=== PATIENT | male | born 2000 | race African-American/Black ===

== ENCOUNTER 2020-03-25 16:51 | Emergency (ER) | payer MEDICAID ==
[2020-03-25 17:00] VITALS: BP 128/63
[2020-03-25] MEDS ORDERED: PREDNISONE 20 MG TABLET PO ONE (18:25)
--- NOTE | 2020-03-25 18:30 | ER Document Report ---
ED Respiratory Problem - General Chief Complaint: Asthma Exacerbation Stated Complaint: ASTHMA Time Seen by Provider: 03/25/20 18:20 Mode of Arrival: Ambulatory Information source: Patient Notes: 19-year-old male presented to ED for shortness of breath. He states he was at the job today and got very short of breath and his boss that he looked, lightheaded and spaced out. He states he always gets that way when he gets an asthma attack. He states he was out of his albuterol inhaler. He is from [place] and did not have one with him. His primary care doctors in [place]. He did promise me he will follow-up with the doctor on Wednesday. He states that he went to the urgent care here they gave him a breathing treatment he is no longer short of breath he is no longer dizzy. He just needs an albuterol inhaler till he goes back home. I have ordered him prednisone and sent him home with a prescription for albuterol and prednisone. I have asked him to please quit smoking the marijuana as this is affecting his asthma. He states no one is ever told that marijuana would affect his asthma. Constitutional: Negative for fever. HENT: Negative for sore throat. Eyes: Negative for visual changes. Cardiovascular: Negative for chest pain. Respiratory: Patient states he was short of breath and wheezing on the job and then became lightheaded and he states his boss told him he was very dazed and spacey. Patient states he does get that way when he has a asthma exacerbation. He gets exacerbations every time the weather changes. He states the weather changes very suddenly and he has been short of breath since then and ran out of his inhaler. He states his primary care doctor is in [place] where he lives. He states he is working right now here in the area and just needs a new inhaler till he can go back home Gastrointestinal: Negative for abdominal pain, vomiting or diarrhea. Genitourinary: Negative for dysuria. Musculoskeletal: Negative for back pain. Skin: Negative for rash. Neurological: Negative for headaches, weakness or numbness. 10 point ROS negative except as marked above and in HPI. PHYSICAL EXAMINATION: GENERAL: Well-appearing, well-nourished and in no acute distress. HEAD: Atraumatic, normocephalic. EYES: Pupils equal round extraocular movements intact, conjunctiva are normal. ENT: Nares patent NECK: Normal range of motion LUNGS: No respiratory distress lungs clear no wheezing at this time Musculoskeletal: Normal range of motion NEUROLOGICAL: Normal speech, normal gait. PSYCH: Normal mood, normal affect. SKIN: Warm, Dry, normal turgor, no rashes or lesions noted. - HPI Patient complains to provider of: Asthma Onset: Other - A couple days Duration: Better Initiating Event: Other - Change in weather Quality of pain: No pain Severity: None Pain Level: Denies Context: Hx asthma, Smoker Chest pain/discomfort: Tightness - No shortness of breath now Cough: Nonproductive - He states he has had no shortness of breath since albuterol nebulizer in urgent care Sputum amount: None At home treatment: Bronchodilators Associated symptoms: Short of breath, Wheezing Similar symptoms previously: Yes Recently seen / treated by doctor: No Past Medical History - General Information source: Patient - Social History Smoking Status: Never Smoker Frequency of alcohol use: None Drug Abuse: Marijuana Lives with: Family Family History: Reviewed & Not Pertinent Patient has suicidal ideation: No Patient has homicidal ideation: No - Past Medical History Cardiac Medical History: Reports: None Pulmonary Medical History: Reports: Hx Asthma EENT Medical History: Reports: None Neurological Medical History: Reports: None Endocrine Medical History: Reports: None Renal/ Medical History: Reports: None Malignancy Medical History: Reports None GI Medical History: Reports: None Musculoskeletal Medical History: Reports None Skin Medical History: Reports None Psychiatric Medical History: Reports: None Traumatic Medical History: Reports: None Infectious Medical History: Reports: None Surgical Hx: Negative Past Surgical History: Reports: None - Immunizations Immunizations up to date: Yes Physical Exam - Vital signs Vitals: Temp Pulse Resp BP Pulse Ox 98.6 F 97 18 128/63 H 100 03/25/20 16:59 03/25/20 16:59 03/25/20 16:59 03/25/20 16:59 03/25/20 16:59 Course - Re-evaluation Re-evalutation: 03/25/20 18:39 We will treat patient with prednisone in the ER discharged home with albuterol inhaler and prednisone prescriptions. Patient has promised he will follow-up with his primary care doctor on Wednesday. His primary care doctor is in [place]. - Vital Signs Vital signs: Temp Pulse Resp BP Pulse Ox 98.6 F 97 18 128/63 H 100 03/25/20 16:59 03/25/20 16:59 03/25/20 16:59 03/25/20 16:59 03/25/20 16:59 Discharge - Discharge Clinical Impression: Asthma Qualifiers: Asthma severity: moderate Asthma persistence: unspecified Asthma complication type: with acute exacerbation Qualified Code(s): J45.901 - Unspecified asthma with (acute) exacerbation Condition: Stable Disposition: HOME, SELF-CARE Additional Instructions: ASTHMA: You have been diagnosed as having asthma. This is a condition where there is episodic tightness in the bronchial tubes. Allergies, infections, and polluted or cold air may be contributing factors. Emergency treatment of a severe asthma attack may include adrenaline shots, or bronchodilator aerosol. You may feel lightheaded, have a decreased exercise tolerance and a rapid pulse for an hour or two. Rest and get plenty of fluids. Home treatment of asthma requires bronchodilator drugs. These can be administered by injection, inhalation, or by mouth. Antibiotics and corticosteroids may be required for some patients. You should avoid chemical fumes, dusts, pollens, and exercising in very cold or dry air. If you smoke, stop!! If you develop a fever, increased wheezing, chest pain, or severe shortness of breath, you should contact the doctor immediately. STEROID MEDICATION: You have been given an injection of or oral medicine of the cortisone/steroid class. This medication is used to control inflammation or allergy. Luis Antonio t is usually only given for a short period of time, until the acute process subsides. There are usually no side effects from short-term use of cortisone-like medications. Some persons feel an increased sense of well-being and are not sleepy at bedtime. Long-term use of cortisone medications is best avoided, unless required for a severe condition. If your condition does not remit, or relapses after the course of corticosteroid medication, you should consult your physician. INHALED BRONCHODILATORS: You have received treatment(s) of and/or prescription for an inhaled bronchodilator -- a medication which stimulates the airways in the lung to dilate. This improves the flow of air in asthma, bronchitis, and emphysema. These medicines have some similarity to adrenaline, and can cause similar side effects: shakiness, racing heart, and a sense of nervousness. These side effects decrease with time. Contact your doctor if these side effects are severe. Do not over-use the medicine. Too-frequent use of the inhaler may make it ineffective. Call your doctor if the inhaler is not controlling your symptoms at the prescribed doses. SMOKING: If you smoke, you should stop smoking. The tar and chemicals in cigarette smoke are harmful. Smoking has been shown to cause: emphysema chronic bronchitis lung cancer mouth and throat cancer stomach and pancreas cancer premature aging defects In addition, smoking increases ear and lung infections in children of smokers. USE OF ACETAMINOPHEN (Tylenol): Acetaminophen may be taken for pain relief or fever control. It's much safer than aspirin, offering a wider range of "safe" dosages. It is safe during . Some brand names are Tylenol, Panadol, Datril, Anacin 3, Tempra, and Liquiprin. Acetaminophen can be repeated every four hours. The following are maximum recommended dosages: WEIGHT Dose Drops Elixir Chewable(80mg) (LBS.) drprs=droppers tsp=teaspoon 6 40 mg 0.4 ml (1/2) 6-11 80 mg 0.8 ml (full) tsp 1 tab 12-16 120 mg 1 1/2 drprs 3/4 tsp 1 1/2 tabs 17-23 160 mg 2 drprs 1 tsp 2 tabs 24-30 240 mg 3 drprs 1 1/2 tsp 3 tabs 30-35 320 mg 2 tsp 4 tabs 36-41 360 mg 2 1/4 tsp 4 1/2 tabs 42-47 400 mg 2 1/2 tsp 5 tabs 48-53 480 mg 3 tsp 6 tabs 54-59 520 mg 3 1/4 tsp 6 1/2 tabs 60-64 560 mg 3 1/2 tsp 7 tabs 65-70 600 mg 3 3/4 tsp 7 1/2 tabs 71-76 640 mg 4 tsp 8 tabs 77-82 720 mg 4 1/2 tsp 9 tabs 83-88 800 mg 5 tsp 10 tabs >89 pounds or adults 650 mg to 900 mg Acetaminophen can be repeated every four hours. Maximum dose not to exceed 4000 mg a day. These maximum recommended dosages are slightly higher than the dosages written on the product container, but these dosages are very safe and below the toxic dosage for acetaminophen. FOLLOW-UP CARE: If you have been referred to a physician for follow-up care, call the physicians office for an appointment as you were instructed or within the next two days. If you experience worsening or a significant change in your symptoms, notify the physician immediately or return to the Emergency Department at any time for re-evaluation. Prescriptions: Prednisone [Deltasone 20 mg Tablet] 3 tab PO DAILY 5 Days #15 tablet Albuterol Sulfate [Proair HFA Inhalation Aerosol 8.5 gm MDI] 2 puff IH Q4H PRN #1 mdi PRN Reason: Forms: Elevated Blood Pressure, Smoking Cessation Education, Return to Work
== END 2020-03-25 18:45 | disposition home or self-care (01) ==
LOC: ER 16:51
DX: J45.901 Unspecified asthma with (acute) exacerbation (principal); T48.6X6A Underdosing of antiasthmatics, initial encounter; Z91.128 Patient's intentional underdosing of medication regimen for other reason; Z91.14 Patient's other noncompliance with medication regimen; F12.10 Cannabis abuse, uncomplicated
CPT/HCPCS: 99283; J7512